=== PATIENT | male | born 2000 | race Caucasian/White ===

== ENCOUNTER 2021-03-08 00:13 | Emergency (ER) | payer OTHER, SELFPAY ==
--- NOTE | ~2021-03-08 | CT_ITS ---
EXAMINATION: CT brain wo con DATE: 03/08/2021 00:36 INDICATION: Altered mental state, agitation, transient alteration of awareness. TECHNIQUE: Computed tomography (CT) of the head was performed without intravenous contrast. The mA wa s adjusted according to patient size. Iterative reconstruction technique was employed. Exam dose: 60 5.33 mGy-cm total exam DLP. COMPARISON: None FINDINGS: No intracranial mass lesion or hemorrhage or cerebrovascular accident. No midline shift or mass effect effect. Normal brooks-white matter differentiation. Normal ventricular size. No subdural or epidural hematoma. No skull fracture. Included paranasal sinuses and mastoid air cells appear normal. IMPRESSION: Normal examination Reviewed, dictated and finalized at [facility]. Reviewed, dictated and finalized at location A. IMPRESSION: Normal examination
[2021-03-08 00:13] VITALS: BP 104/64; PULSE 97; RESP 20; TEMP 36.4; O2SAT 98
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
--- NOTE | 2021-03-08 00:19 | ECG_ITS ---
Measurements Intervals [place] Rate: 103 P: 76 SD: 110 QRS: 87 QRSD: 98 T: 55 QT: 319 QTc: 418 Interpretive Statements SINUS TACHYCARDIA WITH SHORT SD INTERVAL POSSIBLE LEFT ATRIAL ENLARGEMENT MINIMAL Q WAVES- ANTEROLAT/INF LEADS BASELINE ARTIFACT- I, II, III, AVR, AVL, AVF, V1-V6 BORDERLINE ECG Electronically Signed On 03-08-2021 7:49:28 CDT by Constantine Mackay D.O.
[2021-03-08 00:46] LABS: Basophils Absolute Auto 0.05 K/mm3 (0.00-0.10); Basophils Percent Auto 0.3 % (0.0-1.0); Eosinophils Absolute Auto 0.01 K/mm3 (0.02-0.50); Eosinophils Percent Auto 0.1 % (1.0-6.0); Hematocrit 48.6 % (40.0-54.0); Hemoglobin 16.6 g/dL (14.0-18.0); Immature Granulocyte Absolute 0.12 K/mm3 (0.00-0.00); Immature Granulocyte Percent A 0.6 % (0.0-0.0); Lymphocytes Absolute Auto 1.82 K/mm3 (1.10-4.50); Lymphocytes Percent Auto 9.7 % (18.0-42.0); Mean Corpuscular HGB Conc 34.2 g/dL (32.0-36.0); Mean Corpuscular Volume 87.9 fL (78.0-102.0); Mean Platelet Volume 9.8 fl (8.7-11.0); Monocytes Absolute Auto 0.79 K/mm3 (0.10-0.90); Monocytes Percent Auto 4.2 % (2.0-11.0); Neutrophils Absolute Auto 15.9 K/mm3 (1.7-7.2); Neutrophils Percent Auto 85.1 % (50.0-70.0); Platelet Count Result 312 K/mm3 (150-420); Red Blood Count 5.53 M/mm3 (4.70-6.10); Red Cell Distribution Width 13.2 % (11.6-14.4); White Blood Count 18.7 K/mm3 (4.8-10.8)
[2021-03-08] MEDS: SODIUM CHLORIDE 0.9% IV 1,000 ML 999 ML IV CONT (00:54)
[2021-03-08 01:01] LABS: Glucose Point of Care 106 mg/dl (65-105)
[2021-03-08 01:04] LABS: Add Urine Microscopic? YES; Appearance Urine Clear (Clear); Bilirubin Urine Negative (Negative); Blood Urine 1+ (Negative); Color Urine Light Yellow (Yellow); Glucose Urine UA Negative (Negative); Ketones Urine Negative (Negative); Leukocyte Esterase Ur Negative LEU/UL (Negative); Nitrate Urine Negative (Negative); Protein Urine 1+ (Negative); Specific Grav Ur >= 1.030 (1.010-1.020); Urobilinogen Urine 0.2 mg/dL (0.2-1.0); pH Urine 5.5 (5.0-8.0)
--- NOTE | 2021-03-08 01:06 | PC.NURSE ---
pt sedated with ketamine per ems. pt arousable around 0030 to name, pt yelling F---You to [facility] deputy, You are the devil . dr pelaez asking pt if he wants to see parents, pt states F---You to dr pelaez. look at me when im talking to you . per deputsaba boyd and sgt gardiner pt is in police custody and needs medical clearance and can received psych eval at [facility] with [facility]. needs medically cleared since ems medicated with ketamine.
[2021-03-08 01:14] LABS: Alanine Aminotransferase 33 U/L (16-63); Albumin Level 4.5 g/dL (3.4-5.0); Alkaline Phosphatase 161 U/L (46-116); Anion Gap 17 mmol/L (8-16); Aspartate Amino Transferase 29 U/L (15-37); Bilirubin,Total 0.3 mg/dL (0.00-1.00); Blood Urea Nitrogen 11 mg/dL (7-18); Calcium 8.3 mg/dL (8.5-10.1); Carbon Dioxide 22 mmol/L (21-32); Chloride 104 mmol/L (98-108); Creatine Kinase 338 U/L (39-308); Estimated Glomerular Filt Rate > 60; Glucose 114 mg/dL (70-99); Magnesium 2.2 mg/dL (1.8-2.4); Osmolality Calculated 296 mOsm/kg (285-295); Phosphorus 3.4 mg/dL (3.4-5.5); Potassium 3.9 mmol/L (3.5-5.1); Salicylate 0.5 mg/dL (2.8-20.0); Sodium 143 mmol/L (136-145); Thyroid Stimulating Hormone 2.26 uIU/mL (0.36-3.74); Total Protein 8.2 g/dL (6.4-8.2); Troponin I 7.6 ng/L (0.00-60.4)
[2021-03-08 01:15] LABS: Amphetamine Screen Urine Negative (Negative); Barbiturate Screen Urine Negative (Negative); Benzodiazepines Screen Urine Negative (Negative); Cannabinoid Screen Urine Positive (Negative); Cocaine Screen Urine Negative (Negative); Methadone Screen Urine Negative (Negative); Opiate Screen Urine Negative (Negative); Phencyclidine Screen Urine Negative (Negative)
[2021-03-08 01:16] LABS: Bacteria Urine Trace /hpf; RBC Urine 0-2 /hpf (0-2); Squamous Epithelial Cell Urine None seen /hpf (Few); WBC Urine 0-3 /hpf (0-3)
[2021-03-08 01:17] LABS: Acetaminophen < 2 ug/mL (10-30)
[2021-03-08 01:19] LABS: Ethanol 222 mg/dL (0-6)
[2021-03-08] MEDS: SODIUM CHLORIDE 0.9% IV 1,000 ML 999 ML (01:28)
[2021-03-08 01:35] LABS: SARS-CoV-2 RNA PCR Negative (Negative)
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
[2021-03-08 01:51] VITALS: BP 156/102; PULSE 108; RESP 20; TEMP 36.6; O2SAT 98
== END 2021-03-08 02:04 ==
PROVIDERS: Emergency Provider Emergency Medicine
DX: T14.8XXA Other injury of unspecified body region, initial encounter (principal); F10.921 Alcohol use, unspecified with intoxication delirium; S49.92XA Unspecified injury of left shoulder and upper arm, initial encounter; Z20.822 Contact with and (suspected) exposure to COVID-19
CPT/HCPCS: 36415; 70450; 80053; 80307; 81001; 82550; 82948; 83735; 84100; 84443; 84484; 85025; 93005; 96360; 99283; 99284; C9803; J7030; U0003; U0005

== ENCOUNTER → 2021-05-21 15:32 | Outpatient (CLI) | payer OTHER, SELFPAY ==
--- NOTE | ~2021-05-21 | XR_ITS ---
EXAMINATION: XR foot RT min 3V EXAM DATE: 05/21/2021 16:15 INDICATION: M79.671 - Pain in right foot. RT heel pain plantar surface that shoots up medial RT ankl e and tib fib. for a couple weeks. TECHNIQUE: Right foot dorsoplantar, lateral and oblique projections obtained and reviewed. Compariso n is made to prior examination from 09/27/2011. FINDINGS: Right metatarsal bones unremarkable. No evidence of subacute stress fracture. There are n o acute fractures or dislocations identified. There is no subcutaneous gas. The soft tissue is unre markable. There are no radiopaque foreign bodies. IMPRESSION: 1. Right foot exam without acute osseous findings. Reviewed, dictated and finalized at location [facility].
== END ==
PROVIDERS: PCP Family Medicine; Visit Provider Family Medicine
DX: M79.671 Pain in right foot (principal)
CPT/HCPCS: 73630

== ENCOUNTER 2022-02-20 13:41 | Emergency (ER) | payer OTHER, SELFPAY ==
[2022-02-20] VITALS (7 sets, daily range): BP systolic 108–141; BP diastolic 38–85; PULSE 94–139; RESP 20; TEMP 36.3–37.1; O2SAT 89–98
--- NOTE | ~2022-02-20 | CT_ITS ---
EXAMINATION: CT BRAIN W/O DATE: 02/20/2022 14:41 INDICATION: Seizures. TECHNIQUE: Computed tomography (CT) of the head was performed without intravenous contrast. The dose- length product was 605.33 mGy-cm. Automated exposure control and iterative reconstruction technique w ere employed. COMPARISON: 03/08/2021. FINDINGS: Normal brain parenchymal volume for age. Normal brooks-white differentiation. No acute intrac ranial hemorrhage, infarction, mass or mass effect. No ventriculomegaly or midline shift. Midline sagittal images demonstrate a normal corpus callosum, c raniovertebral junction and sella turcica. Basilar cisterns are patent. Paranasal sinuses and mastoids are pneumatized. No depressed skull fractures. IMPRESSION: 1. No acute intracranial abnormality. Reviewed, dictated and finalized at location A.
--- NOTE | ~2022-02-20 | XR_ITS ---
EXAMINATION: XR chest 1V portable INDICATION: Possible aspiration TECHNIQUE: Portable AP chest at 1429 hours COMPARISON: 07/05/2013 FINDINGS: The lungs are free of acute opacities. No pleural effusion or pneumothorax. The cardiomedia stinal silhouette is normal. The visualized osseous structures are unremarkable. IMPRESSION: 1. No acute cardiopulmonary abnormality. Reviewed, dictated and finalized at location B.
--- NOTE | 2022-02-20 14:01 | ED.OVERDOSE ---
HPI - Overdose General Chief Complaint: Seizure Stated Complaint: possible overdose Time Seen by Provider: 02/20/22 14:01 Source: patient Mode of arrival: EMS History of Present Illness HPI Narrative: 21-year-old male with a history of anxiety /depression, aspergers, alcohol use had to go to court for his multiple speeding tickets. Today he snorted cocaine and took 4, 10 mg tablets of Lexapro and 2, 75 mg tablets of diclofenac. He denied suicidal ideation. He looked different at home following which his mother called the EMS. She was getting ready to bring him to the ER when he had grand mal seizure. Subsequently the EMS took over and EN route to the hospital he had another episode of grand mal seizures. He was hemodynamically stable during the EMS ride to the hospital. -- Status post 2 grand mal seizures. No focal neuro deficits. the patient received 4 mg of Ativan prior to coming to the hospital. -- patient is confused and has slurred speech -- gurgling respiration with oxygen saturations in the high 80s. blood sugar 126 in the ER. MD complaint: other ( Patient denies suicidal or homicidal ideation.) Onset (ago): unknown ( The patient had seizures 1 hour prior to coming to the ER) Timing confirmed by: other ( EMS) Intent: wanted to escape Context: Intentional Overdose: legal problems Associated symptoms: depression Treatments Prior to Arrival: other ( IV Ativan) Related Data Home Medications Medication Instructions Recorded Confirmed No Home Medications 02/20/22 02/20/22 Allergies Allergy/AdvReac Type Severity Reaction Status Date / Time No Known Drug Allergies Allergy Mild Unknown Verified 06/11/21 15:37 Review of Systems Review of Systems: All systems reviewed & are unremarkable except as noted in HPI and below Constitutional: Constitutional: Reports as per HPI and Reports no additional constitutional complaints Eyes: Eyes: Reports as per HPI and Reports no additional eye complaints ENT: Reports system reviewed and no additional complaints, except as documented and Reports as per HPI Cardiovascular: Cardiovascular: Reports as per HPI and Reports no additional cardiovascular complaints Respiratory: Respiratory: Reports as per HPI and Reports no additional respiratory complaints Gastrointestinal: Gastrointestinal: Reports as per HPI and Reports no additional gastrointestinal complaints Genitourinary: Genitourinary: Reports no additional male genitourinary complaints and Reports as per HPI Musculoskeletal: Musculoskeletal: Reports no additional musculoskeletal complaints and Reports as per HPI Integumentary/Breasts: Skin/Breast: Reports system reviewed and no additional complaints, except as docu and Reports as per HPI Neurologic: Reports system reviewed and no additional complaints, except as documented and Reports as per HPI PMFSH Past Medical History Medical History Anxiety Aspergers' syndrome Body mass index (BMI) less than 20 Depression Right foot pain Surgical History Surgical History H/O circumcision Hx of tonsillectomy Social History Social History Smoking status: Current every day smoker Tobacco type: cigarettes Smokeless tobacco user: chewing tobacco Alcohol intake: current Substance use: never Substance use type: does not use Exam Const: General: no acute distress Nutritional Appearance: thin Limitations: altered mental status HENMT: Head: normal to inspection Ears: external ears normal General nose exam: Normal external nose present Face and sinus: normal facial exam Mouth: Yes Normal oral and palatal mucosa present Throat: posterior oropharynx normal Eyes: Conjunctivae: conjunctivae normal Pupils: Equal, round and reactive pupils present EOM: EOMs intact bilaterally Direct Ophthalmos
--- NOTE | 2022-02-20 14:02 | ECG_ITS ---
Measurements Intervals [place] Rate: 130 P: 72 [place]: 124 QRS: 81 QRSD: 113 T: 20 QT: 360 QTc: 530 Interpretive Statements SINUS TACHYCARDIA INTRAVENTRICULAR CONDUCTION DELAY MINIMAL Q WAVES- ANTEROLAT/INF LEADS BORDERLINE ST-T WAVE ABNORMALITY- INFERIOR LEADS BASELINE ARTIFACT- V1-V3 ABNORMAL ECG Electronically Signed On 02-20-2022 15:22:42 CDT by Constantine Mackay D.O.
[2022-02-20 14:09] LABS: Glucose Point of Care 126 mg/dl (65-105)
[2022-02-20 14:30] LABS: Basophils Absolute Auto 0.08 K/mm3 (0.00-0.10); Basophils Percent Auto 0.4 % (0.0-1.0); Eosinophils Absolute Auto 0.06 K/mm3 (0.02-0.50); Eosinophils Percent Auto 0.3 % (1.0-6.0); Hematocrit 43.4 % (40.0-54.0); Hemoglobin 14.3 g/dL (14.0-18.0); Immature Granulocyte Absolute 0.16 K/mm3 (0.00-0.00); Immature Granulocyte Percent A 0.9 % (0.0-0.0); Lymphocytes Absolute Auto 1.45 K/mm3 (1.10-4.50); Lymphocytes Percent Auto 7.9 % (18.0-42.0); Mean Corpuscular HGB Conc 32.9 g/dL (32.0-36.0); Mean Corpuscular Hemoglobin 30.4 pg (27.0-31.0); Mean Corpuscular Volume 92.3 fL (78.0-102.0); Mean Platelet Volume 10.2 fl (8.7-11.0); Monocytes Absolute Auto 0.46 K/mm3 (0.10-0.90); Monocytes Percent Auto 2.5 % (2.0-11.0); Neutrophils Absolute Auto 16.1 K/mm3 (1.7-7.2); Platelet Count Result 303 K/mm3 (150-420); Red Cell Distribution Width 14.1 % (11.6-14.4); White Blood Count 18.3 K/mm3 (4.8-10.8)
[2022-02-20 14:39] LABS: Base Excess ABG -10.1 mmol/L (0-2); HCO3 ABG 15.8 mmol/L (23-29); Oxyhemoglobin 81.3 % (94-100); PCO2 ABG 35.3 mmHg (35-45); Total Hemoglobin 14.9 g/dL (12.0-18.0); pH ABG 7.27 (7.35-7.45)
[2022-02-20 14:41] LABS: Device NASAL CANNULA; Modified Allen's Test Pass; Site Drawn RIGHT RADIAL
[2022-02-20 14:45] LABS: INR 1.1; Partial Thromboplastin Time 24.6 SEC (23.90-30.70); Prothrombin Time 11.7 Seconds (9.50-12.10)
[2022-02-20 14:50] LABS: Lactic Acid Reflex 12.7 mmol/L (0.4-2.0)
[2022-02-20] MEDS: LACTATED RINGERS 1,000 ML 999 ML IV CONT (14:51)
[2022-02-20] MEDS: THIAMINE HCL 200 MG/2 ML VIAL 100 MG IV PUSH (14:52)
[2022-02-20 14:56] LABS: Alanine Aminotransferase 21 U/L (16-63); Albumin Level 3.8 g/dL (3.4-5.0); Alkaline Phosphatase 144 U/L (46-116); Anion Gap 21 mmol/L (8-16); Aspartate Amino Transferase 14 U/L (15-37); Bilirubin,Total 0.2 mg/dL (0.00-1.00); Blood Urea Nitrogen 10 mg/dL (7-18); Calcium 8.6 mg/dL (8.5-10.1); Carbon Dioxide 15 mmol/L (21-32); Chloride 103 mmol/L (98-108); Estimated Glomerular Filt Rate > 60; Ethanol < 3 mg/dL (0-6); Glucose 135 mg/dL (70-99); Lipase 25 U/L (73-393); Magnesium 2.3 mg/dL (1.8-2.4); Osmolality Calculated 289 mOsm/kg (285-295); Potassium 3.5 mmol/L (3.5-5.1); Salicylate 3.5 mg/dL (2.8-20.0); Sodium 139 mmol/L (136-145); Thyroid Stimulating Hormone 1.46 uIU/mL (0.36-3.74); Total Protein 7.2 g/dL (6.4-8.2); Troponin I 5.4 ng/L (0.00-60.4)
[2022-02-20 14:57] LABS: Acetaminophen < 2 ug/mL (10-30)
[2022-02-20 15:27] LABS: Add Urine Microscopic? YES; Appearance Urine Clear (Clear); Bilirubin Urine Negative (Negative); Blood Urine Negative (Negative); Color Urine Light Yellow (Yellow); Glucose Urine UA Negative (Negative); Ketones Urine Negative (Negative); Leukocyte Esterase Ur Negative (Negative); Nitrate Urine Negative (Negative); Protein Urine 1+ (Negative); Urobilinogen Urine 0.2 mg/dL (0.2-1.0)
[2022-02-20 15:34] LABS: RBC Urine None seen /hpf (0-2); Squamous Epithelial Cell Urine Rare /hpf (Few); WBC Urine None seen /hpf (0-3)
[2022-02-20 15:35] LABS: Bacteria Urine None seen /hpf
[2022-02-20 15:36] LABS: Amphetamine Screen Urine Negative (Negative); Barbiturate Screen Urine Negative (Negative); Benzodiazepines Screen Urine Positive (Negative); Cannabinoid Screen Urine Positive (Negative); Cocaine Screen Urine Positive (Negative); Methadone Screen Urine Negative (Negative); Opiate Screen Urine Negative (Negative); Phencyclidine Screen Urine Negative (Negative)
[2022-02-20] MEDS: SODIUM CHLORIDE 0.9% IV 1,000 ML 999 ML IV CONT (16:00)
--- NOTE | 2022-02-20 16:50 | PC.NURSE ---
1600 pt resting per cot. states feeling better and more like normal. pt alert and oriented. answers questions appropriately. 1650 pt resting per cot, playing on cell phone, parents at bedside.
--- NOTE | 2022-02-20 17:12 | PC.NURSE ---
MEAL PROVIDED TO PT AND FAMILY. NO SEIZURE ACTIVITY SINCE ARRIVAL TO ER. AWAITING REPEAT LAB WORK. ERP IN WITH PT AND FAMILY. EXPLAINING PLAN OF CARE.
[2022-02-20 17:28] LABS: Reflex Lactic Acid Yes or No Add Lactic
[2022-02-20 18:05] LABS: Anion Gap 7 mmol/L (8-16); Blood Urea Nitrogen 8 mg/dL (7-18); Calcium 8.3 mg/dL (8.5-10.1); Carbon Dioxide 25 mmol/L (21-32); Chloride 103 mmol/L (98-108); Estimated CRCL calculation 114 ml/min; Estimated Glomerular Filt Rate > 60; Glucose 130 mg/dL (70-99); Osmolality Calculated 280 mOsm/kg (285-295); Potassium 3.5 mmol/L (3.5-5.1); Sodium 135 mmol/L (136-145)
--- NOTE | 2022-02-20 18:12 | PC.NURSE ---
pt resting per cot. ate 100% of meal provided. family in room with pt
[2022-02-20 18:16] LABS: Lactic Acid 1.5 mmol/L (0.4-2.0)
--- NOTE | 2022-02-20 18:51 | PC.NURSE ---
pt given some pamphlets on outpatient services for rehab, drug addiction , aa, na.
== END 2022-02-20 18:50 | disposition home or self-care (01) ==
PROVIDERS: Emergency Provider Internal Medicine Critical Care Medicine; PCP Physician Assistant Medical
DX: G40.802 Other epilepsy, not intractable, without status epilepticus (principal); F19.10 Other psychoactive substance abuse, uncomplicated; R41.82 Altered mental status, unspecified; F41.9 Anxiety disorder, unspecified; F17.200 Nicotine dependence, unspecified, uncomplicated
CPT/HCPCS: 36415; 36600; 70450; 71045; 80048; 80053; 80307; 81001; 82805; 82948; 83605; 83690; 83735; 84443; 84484; 85025; 85610; 85730; 93005; 96361; 96374; 99284; J3411; J7030; J7120